=== PATIENT | male | born 1990 | race Caucasian/White ===

== ENCOUNTER 2025-03-26 19:39 | Emergency (ER) | payer SELFPAY | END 2025-03-26 22:02 | disposition home or self-care (01) | LOC: ERS 19:39 | DX: S80.01XA Contusion of right knee, initial encounter (principal); J45.909 Unspecified asthma, uncomplicated; F17.210 Nicotine dependence, cigarettes, uncomplicated; W18.30XA Fall on same level, unspecified, initial encounter; Z79.51 Long term (current) use of inhaled steroids | CPT/HCPCS: 99283 ==